=== PATIENT | female | born 1955 | race Caucasian/White ===

== ENCOUNTER 2024-08-11 17:23 | Emergency (ER) | payer MEDICARE, MEDICAID, SELFPAY ==
--- NOTE | ~2024-08-11 | XR_ITS ---
CLINICAL HISTORY: pain 3 view left ankle Comparison: None Findings: No acute fractures or dislocations. Mild arthritic change. A calcaneal spur is present. No ankle effusion. No radiopaque foreign body. IMPRESSION: 1. No acute findings. This document has been electronically signed by: Tangela Wiseman MD on 08/11/2024 18:28:45
[2024-08-11 17:41] VITALS: BP 139/86; PULSE 93; RESP 16; TEMP 36.7; O2SAT 98; BMI 25.9
--- NOTE | 2024-08-11 18:01 | ED.GENADULT ---
HPI - General Adult General Chief complaint: Extremity Injury, Lower Stated complaint: L leg pain Time Seen by Provider: 08/11/24 18:10 Source: patient Limitations: no limitations History of Present Illness ED Provider: Dee Johnson PA-C HPI narrative: 69-year-old female with a history of osteoporosis and osteoarthritis presents with chronic left ankle pain. No new activity, no trauma no swelling no redness, no fever. Patient has been seen multiple planes by primary care, she has been ruled out for DVT several times. Related Data Previous Rx's ?Medication ?Instructions ?Recorded methylprednisolone 4 mg tablets in 4 mg PO QAM #21 ea 08/11/24 a dose pack (Medrol (Nitesh)) Allergies Allergy/AdvReac Type Severity Reaction Status Date / Time morphine Allergy Intermediate Rash Verified 08/11/24 17:42 Review of Systems Review of Systems: Yes all other systems are reviewed and are negative Constitutional: Constitutional: Denies fatigue and Denies fever(s) Musculoskeletal: Musculoskeletal: Reports arthralgias and Denies joint swelling Integumentary/Breasts: Skin/Breast: Denies erythema Endocrine: Endocrine: Denies fatigue [facility] Past Medical History Attestation statement: The following information was validated with the patient. Social History Social History Advance Directives: No Advance Directives Information Provided: No Do you have a plan to hurt others: No Plan Physical Exam ED Vital Signs: Vital Signs - 24 hr 08/11/24 17:41 Temperature 98.1 F Pulse Rate 93 Respiratory Rate 16 Blood Pressure 139/86 Pulse Oximetry 98 Oxygen Delivery Method Room Air BMI result Body Mass Index 25.9 Const Other: Alert well-appearing Orientation/consciousness: patient oriented x3 Resp Effort & Inspection: normal respiratory effort Cardio Other: Normal peripheral perfusion Skin Other: Warm dry no rash Neuro Other: Antalgic gait General: patient oriented x3, no focal motor deficits and CN's II-XI intact bilaterally Extrem Other: Full flexion and extension of the ankle no swelling no erythema no warmth of the joint unremarkable exam pain most prominent over left lateral heel Psych Other: Cooperative Course Course Course Narrative: RME, this is a rapid medical exam performed by Chi Arnold please refer to primary provider for complete H&P- 69-year-old female presents for evaluation of left ankle pain that radiates up the left calf. She reports the pain has been present for 6 weeks now. She reports that she has had 2 previous ultrasounds of the left lower extremity that ruled out DVT. She has not had any x-rays. She has tried muscle relaxers without improvement. Plan for x-ray of the left ankle Medical Decision Making Medical Decision Making MDM Narrative: 69-year-old female with a history of osteoporosis and osteoarthritis presents with chronic left ankle pain. No new activity, no trauma no swelling no redness, no fever. Patient has been seen multiple planes by primary care, she has been ruled out for DVT several times. Problem: Age, osteoporosis and osteoarthritis History: Per patient I have considered the following differential diagnoses: Arthritis, fracture, dislocation, lytic lesion, septic joint Plan: X-ray ordered from triage it is unremarkable, she has a arthritis and a heel spur. We will send the patient with home care instructions including the use of Tylenol and adding on a Medrol Dosepak. I have suggested she follow up with an orthopedist for potential joint injections. I have independently reviewed the following tests: X-ray left ankle:Findings: No acute fractures or dislocations. Mild arthritic change. A calcaneal spur is present. No ankle effusion. No radiopaque foreign body. IMPRESSION: 1. No acute findings. Discharge Plan Discharge Clinical Impression: Osteoarthritis of ankle, left, Heel spur Patient Disposition: Home, Self-Care Instructions: Osteoarthritis (ED), Heel Spur (ED) Additional Instructions: The x-ray revealed that you have a heel spur and arthritis. The two condition are related. See home care instructions. You should be wearing a proper shoe that is supportive such as a sneaker. You can use [id number] Tylenol 1000 mg taken every 8 hours for pain. In addition I am sending you with a anti-inflammatory, take it as directed. Follow up with your primary care provider, they can refer you to an orthopedic service for potential joint injections if your symptoms do not improve. Prescriptions: New methylprednisolone [Medrol (Nitesh)] 4 mg tablets,dose pack 4 mg PO QAM Qty: 21 0RF Rx Instructions: Take per package instructions Print Language: Czech
--- OUTSIDE RECORDS SUMMARY | 2024-08-11 18:34 | XMS_ITS | Encounter Summary ---
Author Organization [facility] Address [address] [place] [address] Care Team Providers Care Plant Science Professor Name Role Phone Jadyn Nina Primary Care Provider [phone] Encounter Details Date Type Department Care Team (Late st Contact Info) Description 07/28/2024 Telephone Gastroenterology - [address] [facility] [address] [place] [phone] Danyelle Pimentel MD [address] [place] [address] Social History Tobacco Use Types Packs/Day Years Used Date Smoking Tobacco: Every Day Smokeless Tobacco: Never Comments Unknown Sex and Gender Information Value Date Recorded Sex Assigned at Female 07/31/2024 12:53 PM EDT Legal Sex Female 5:54 AM EST Gender Identity Female 07/31/2024 12:53 PM EDT Sexual Orientation Not on file documented as of this encounter Progress Notes * Alva Muñoz - 07/28/2024 2:03 PM EDT 1st attempt to schedule an appointment patient left message to call back. Pt needs to be seen in the office again, Last seen 03/2024 with morena. she mentions epigastric pain and gerd. Procedure is 5/6. EST 175 PROVIDERS * Bronwyn Michelle - 07/28/2024 11:21 AM EDT PT HAS A COLON ON 08/05 AND WONDERING IF SHE CAN GET A EGD AT THE SAME TIME documented in this encounter Plan of Treatment Upcoming Encounters Date Type Department Care Team (Late st Contact Info) Description 08/28/2024 10:15 AM EDT Appointment [facility] Xray [address] [place] [phone] 09/10/2024 3:30 PM EDT Appointment [facility] Endoscopy [address] [place] [phone] Danyelle Pimentel MD [address] [facility] [address] [place], [place] [phone] 09/18/2024 8:00 AM EDT Office Visit [facility] [address] [facility] [address] [place] [phone] Ligia Barnes MD 175 [facility] [address] [place] [phone] documented as of this encounter Visit Diagnoses Not on filedocumented in this encounter Care Teams Plant Science Professor Relationship Specialty Start Date End Date Jadyn Nina [address] [place] [address] PCP - General 04/15/24 documented as of this encounter
--- OUTSIDE RECORDS SUMMARY | 2024-08-11 18:34 | XMS_ITS | Clinical Summary ---
Author Organization [facility] Address [address] [place] [address] Care Team Providers Care Knife Blade Polisher Name Role Phone Molly Nina Primary Care Provider [phone] Allergies Active Allergy Reactions Criticality Noted Date Comments Lisinopril 02/01/2024 Morphine Rash 02/01/2024 Medications omeprazole (PriLOSEC) [address] capsule TAKE ONE CAPSULE BY MOUTH EVERY DAY IN THE MORNING BEFORE BREAKFAST NEEDED FOR SEVERE HEARTBURN Active aspirin 81 mg EC tablet Take 1 tablet (81 mg total) by mouth 1 (one) time each day. Active atorvastatin (LIPITOR) 40 mg tablet Take 1 tablet (40 mg total) by mouth. 4 Active albuterol HFA (PROVENTIL HFA;VENTOLIN HFA) 108 (90 Base) MCG/ACT inhaler Inhale into the lungs. Active cetirizine (ZyrTEC) 10 mg tablet Take by mouth. Activ e fluticasone furoate (ARNUITY ELLIPTA) 50 mcg/actuation blister with device inhaler Inhale into the lungs. Active pantoprazole (PROTONIX) 40 mg EC tablet Take 1 tablet (40 mg total) by mouth 1 (one) time each day. Take in am on empty stomach, wait 30 mins and then eat to activate the medication 30 each 4 Active clopidogreL (PLAVIX) 75 mg tablet Take 1 tablet (75 mg total) by mouth 1 (one) time each day. Active cholecalcifero l (VITAMIN D-3) 50 mcg (2,000 unit) tablet Take 1 tablet (2,000 Units total) by mouth 1 (one) time each day. Active alendronate (FOSAMAX) 70 mg tablet Take 1 tablet (70 mg total) by mouth every 7 (seven) days. Take in the morning with a full glass of water, on an empty stomach, and do not take anything else by mouth or lie down for the next 30 min. Active budesonide-for moteroL (SYMBICORT) 80-4.5 mcg/actuation inhaler Inhale 2 puffs by mouth 2 (two) times a day. Rinse mouth with water after use to reduce aftertaste and incidence of candidiasis. Do not swallow. Active fluticasone propionate (Flonase Allergy Relief) 50 mcg/actuation nasal spray Administer 1 spray into each nostril 2 (two) times a day. 3 Active cyanocobalamin (VITAMIN B-12) 1,000 mcg tablet Take 1 tablet (1,000 mcg total) by mouth daily. 3 Active acetaminophen (TYLENOL) 500 mg tablet Take 1 tablet (500 mg total) by mouth every 6 hours as needed. 4 Active escitalopram (LEXAPRO) 10 mg tablet Take 1 tablet (10 mg total) by mouth 1 (one) time each day. Active polyethylene glycol (Golytely) 236-22.74-6.74 -5.86 gram solution Take 4L by mouth once for one dose. May substitue any PEG. Starting at 6PM the night before your procedure drink 1 8oz glasses at your own pace until you complete half of the gallon. Finish 2nd half of the gallon 5 hours before your procedure. 4000 mL 5 Active bisacodyL (DULCOLAX) 5 mg EC tablet Take 2 tablets by mouth right before beginning bowel prep. See instructions provided by the office 2 tablet 5 Active gabapentin (NEURONTIN) 800 mg tablet Take 1 Tablet by mouth 3 times daily. 90 each 5 5 Active gabapentin (NEURONTIN) 800 mg tablet Take 1 Tablet by mouth 3 times daily. 025 Discontin ued(Reord er) Active Problems Problem Noted Date Diagnosed Date Acute deep vein thrombosis ( DVT) of proximal end of left lower extremity (CMS/HCC V24, CMS/HCC V28) 02/01/2024 Anxiety 02/01/2024 Bilateral leg numbness 02/01/2024 Chronic congestive heart failure ([facility] V24, [facility] [place] V28) 02/01/2024 Depression 02/01/2024 Gastroesophageal reflux disease 02/01/2024 History of ETOH abuse 02/01/2024 Ingrown toenail 02/01/2024 Internal hemorrhoids 02/01/2024 Lung nodules 02/01/2024 Nerve pain 02/01/2024 Neuropathy involving both lower extremities 04/2023 Osteoporosis 02/01/2024 Pleural effusion 02/01/2024 Pneumonia 02/01/2024 Pulmonary emboli ([facility] V24, [facility] V28) 04/2023 Stress bladder incontinence, female 02/01/2024 Encounters Date Type Department Care Team Description 07/28/2024 Telephone Gastroenterology - [address] [facility] [address] [place] [phone] Danyelle Pimentel MD 07/10/2024 Telephone Gastroenterology [facility] [address] [facility] [address] [place] [address] Kanika Naranjo LPN Anticoagulation (Colonoscopy on 08/05/[address] Pimentel) 06/13/2024 8:00 AM EDT Office Visit [facility] [address] [place] [phone] Laura Brumfield, DURAN Cerebrovascular accident (CVA) due to stenosis of posterior cerebral artery, unspecified blood vessel laterality ([facility] V24, [facility] V28) (Primary Dx) 06/09/2024 Telephone Gastroenterology [facility] [address] [facility] [address] [place] [address] Sariah Ortiz MD special procedure 06/05/2024 Telephone Gastroenterology [facility] [address] [facility] [address] [place] [address] Sariah Ortiz MD information needed from Last 3 Months Surgical History Surgery Date Site/Laterality Comments CHOLECYSTECTOMY N/A PROCEDURE: HISTORICAL CHOLECYSTECTOMY HYSTERECTOMY N/A PROCEDURE: HISTORICAL HYSTERECTOMY Medical History Medical History Date Comments Gastroesophageal reflux disease 10/16/2022 DX:Gastroesophageal reflux disease Pulmonary emboli (CMS/HCC V2 4, CMS/HCC V28) 10/16/2022 DX:Pulmonary emboli (HCC) History of total hysterectom y with bilateral salpingo-oophorectomy (BSO) 10/16/2022 DX:History of to beatriz hysterectomy with bilateral salpingo-oophorectomy (BSO) History of colonoscopy with polypectomy DX:History of colonoscopy with polypectomy Anxiety 10/16/2022 DX:Anxiety Depression 10/16/2022 DX:Depression History of ETOH abuse 10/16/2022 DX:History of ETOH abuse Stress bladder incontinence, female 10/16/2022 DX:Stress bladder incontinence, female Ingrown toenail 10/16/2022 DX:Ingrown toena il Chronic congestive heart marilyn lure (CMS/HCC V24, CMS/HCC V28) 10/16/2022 DX:Chronic congestive heart failure (HCC) Pneumonia 10/16/2022 DX:Pneumonia Pleural effusion 10/16/2022 DX:Pleural effu adele Acute deep vein thrombosis ( DVT) of proximal end of left lower extremity (CMS/HCC V24, CMS/HCC V28) 10/16/2022 DX:Acute deep vein thrombos is (DVT) of proximal end of left lower extremity (HCC) Nerve pain 10/16/2022 DX:Nerve pain Bilateral leg numbness 10/16/2022 DX:Bilate ral leg numbness Internal hemorrhoids 10/16/2022 DX:Internal hemorrhoids Neuropathy involving both lo wer extremities 10/16/2022 DX:Neuropathy involving both lower extremities Osteoporosis 10/16/2022 DX:Osteoporosis History of seizures 10/16/2022 DX:History o f seizures Lung nodules 10/16/2022 DX:Lung nodules History of gastric bypass 10/16/2022 DX:His tory of gastric bypass Social History Tobacco Use Types Packs/Day Years Used Date Smoking Tobacco: Every Day Smokeless Tobacco: Never Tobacco Cessation:Ready to Q uit: Not Asked; Counseling Given: Not Answered Comments Unknown Sex and Gender Information Value Date Recorded Sex Assigned at Female 07/31/2024 12:53 PM EDT Legal Sex Female 5:54 AM EST Gender Identity Female 07/31/2024 12:53 PM EDT Sexual Orientation Not on file Obstetrics History Last Filed Vital Signs Vital Sign Reading Time Taken Comments Blood Pressure 129/68 06/13/2024 8:19 AM EDT Pulse 67 06/13/2024 8:19 AM EDT Temperature 35.6 ??C (96 ??F) 06/13/2024 8:19 AM EDT Respiratory Rate - - Oxygen Saturation 99% 06/13/2024 8:19 AM EDT Inhaled Oxygen Concentration - - Weight 56.7 kg (125 lb) 06/13/2024 8:19 AM EDT Height 149.9 cm (4' 11 ) 06/13/2024 8:19 AM EDT Body Mass Index 25.25 06/13/2024 8:19 AM EDT Plan of Treatment Upcoming Encounters Date Type Department Care Team (Late st Contact Info) Description 08/28/2024 10:15 AM EDT Appointment [facility] Xray [address] [place] [phone] 09/10/2024 3:30 PM EDT Appointment [facility] Endoscopy [address] [place] [address] Danyelle Pimentel MD 299 [facility] [address] [place] [address] 09/18/2024 8:00 AM EDT Office Visit [facility] 175 [facility] [address] [place] [phone] Ligia Barnes MD 175 [facility] [address] [place] [phone] Health Maintenance Due Date Last Done Comments RSV Immunization Adult Patients (1 - Risk 60-74 years 1-dose series) 2014 Colorectal Cancer Screening: Colonoscopy 03/05/2022 Falls Risk Assessment 03/05/2022 Hepatitis C Screening 03/05/2022 Lung Cancer Screening (Low Dose CT) 03/05/2022 Medicare Annual Wellness Visit 03/05/2022 Social Influencers of Health Screening 03/05/2022 Breast Cancer Screening 12/01/2022 12/01/2020 Pneumococcal Vaccine: 50+ Years (2 of 2 - PCV) 08/04/2023 08/03/2022, 03/06/2016 COVID-19 Vaccine (3 - season) 2023 08/28/2020, 08/07/2020 Hypertension/CHF/CAD Annual BMP Blood Test 02/26/2025 02/27/2024, 08/03/2022 Depression Screening 03/24/2025 03/24/2024 Cholesterol Screening (Lipid Panel) 08/04/2027 08/03/2022, 08/03/2022, 05/27/2020, Additional history exists DTaP,Tdap,and Td Vaccines (2 - Td or Tdap) 05/07/2028 05/07/2018 Osteoporosis Screening (Bone Density Screening) 12/30/2033 12/31/2023, 12/31/2023, 12/01/2020 Zoster Vaccines Completed 08/03/2022, 05/27/2020 Influenza Vaccine Completed 12/13/2023 HIB Vaccines Aged Out No longer eligi ble based on patient's age to complete this topic HPV Vaccines Aged Out No longer eligi ble based on patient's age to complete this topic Hepatitis A Vaccines Aged Out No long er eligible based on patient's age to complete this topic Hepatitis B Vaccines Aged Out No long er eligible based on patient's age to complete this topic IPV Vaccines Aged Out No longer eligi ble based on patient's age to complete this topic MMR Vaccines Aged Out No longer eligi ble based on patient's age to complete this topic Meningococcal ACWY Vaccine Aged Out N o longer eligible based on patient's age to complete this topic Meningococcal B Vaccine Aged Out No l onger eligible based on patient's age to complete this topic RSV Immunization Patients Under 20 months Aged Out No longer eligible based on patient's age to complete this topic Varicella Vaccines Aged Out No longer eligible based on patient's age to complete this topic Procedures Procedure Name Priority Date/Time Associated Diagnosis Comments COMPREHENSIVE METABOLIC PANEL Routine 02/27/2024 11:51 AM EST Neuropathy [facility] DEXA AXIAL SKELETON Routine 12/31/2023 10:04 AM EDT Asymptomatic menopausal state [facility] SCREENING DIGITAL Routine 12/01/2020 5:49 PM EDT Encounter for screening mammogram for malignant neoplasm of breast from Last 3 Months or Most Recently Relevant to Health Maintenance Results * Comprehensive metabolic panel (02/27/2024 11:51 AM EST) Sodium 139 133 - 145 mmol/L LAB CHEMISTRY METHOD 02/27/2024 5:30 PM [facility] Potassium 4.3 3.5 - 5.5 mmol/L LAB CHEMISTRY METHOD 02/27/2024 5:30 PM [facility] Chloride 108 96 - 110 mmol/L LAB CHEMISTRY METHOD 02/27/2024 5:30 PM [facility] CO2 25 21 - 32 mmol/L LAB CHEMISTRY METHOD 02/27/2024 5:30 PM [facility] Anion Gap 6 3 - 11 LAB CHEMISTRY METHOD 02/27/2024 5:30 PM [facility] Glucose 86 70 - 100 mg/dL LAB CHEMISTRY METHOD 02/27/2024 5:30 PM [facility] BUN 9 5 - 25 mg/dL LAB CHEMISTRY METHOD 02/27/2024 5:30 PM [facility] Creatinine 0.80 0.50 - 1.10 mg/dL LAB CHEMISTRY METHOD 02/27/2024 5:30 PM [facility] eGFR 80 >=60 mL/min/1. 73m2 LAB CHEMISTRY METHOD 02/27/2024 5:30 PM [facility] Comment:Calculation based on the??Chronic Kidney Disease Epidemiology Collaboration (CKD-EPI) equation refit??without adjustment for race. BUN/Creatinine Ratio 11.3 LAB CHEMISTRY METHOD 02/27/2024 5:30 PM [facility] Calcium 9.7 8.5 - 10.5 mg/dL LAB CHEMISTRY METHOD 02/27/2024 5:30 PM [facility] AST (SGOT) 13 10 - 42 unit/L LAB CHEMISTRY METHOD 02/27/2024 5:30 PM [facility] ALT (SGPT) 13 10 - 60 unit/L LAB CHEMISTRY METHOD 02/27/2024 5:30 PM [facility] Alkaline Phosphatase 111 42 - 121 unit/L LAB CHEMISTRY METHOD 02/27/2024 5:30 PM [facility] Total Protein 6.6 6.0 - 8.0 g/dL LAB CHEMISTRY METHOD 02/27/2024 5:30 PM EST [facility] Albumin 3.9 3.2 - 5.0 g/dL LAB CHEMISTRY METHOD 02/27/2024 5:30 PM [facility] Total Bilirubin 0.5 0.0 - 1.4 mg/dL LAB CHEMISTRY METHOD 02/27/2024 5:30 PM [facility] Blood Venous blood specimen / Unknown Venipuncture / Unknown 02/27/2024 11:51 AM EST 02/27/2024 11:51 AM EST Ligia Barnes MD LAB BLOOD ORDERABLES Fin al Result [facility] [address] [place] [address], * [facility] DEXA AXIAL SKELETON (12/31/2023 10:04 AM EDT) Anatomical Region Laterality Modality Mammography 12/31/2023 9:17 AM EDT Narrative 12/31/2023 10:04 AM EDT [facility] Diagnostic Imaging Department [address] [place] [address] Patient: ??WILLIAM,YAQUELIN ?/Age/Sex: 1955 - 68 - F Unit#: ??[id number] ? Location/Status: ??SPDIMAM/REG CLI ? Mnemonic/Ordering Site: ??MAMDEXAAX/SPMAM Ordering Physician: ??MOLLY AVILEZ [employer] SALES REPRESENTATIVE [facility] Dexa Axial Skeleton - 12/31/23949 Report Status:Signed HISTORY: ??The patient is a 68-year-old postmenopausal female with clinical concern for metabolic bone disease. FINDINGS: ??Dual energy x-ray absorptiometry of the lumbar spine and femurs is performed. The mean bone mineral density at L1-L4 is 0.932 gm/cm2 which is 79% of that of young normals and 98% of that of age matched controls. This yields a T-score of -2.1 and a Z-score of -0.2 which is diagnostic of osteopenia. The mean bone mineral density of the femurs bilaterally is 0.575 gm/cm2 which is 57% of that of young normals and 71% of that of age matched controls. ??This yields a T-score of -3.4 and a Z-score of -1.8 which is diagnostic of osteoporosis. IMPRESSION: 1. Osteoporosis. ??There has been a decrease of 3.4% in bone mineral density in the lumbar spine since the prior examination of 12/01/2020. ??There has been a decrease of 19.7% in bone mineral density in the right femur and a decrease of 15.9% in bone mineral density in the left femur. 2. FRAX analysis yields a 10-year probability of major osteoporotic fracture of 30.0% and a 10-year probability of hip fracture of 13.6%. Code 17999 Dictating Physician: ??BETINA BRUNO MD Electronically Signed by: ??BETINA BRUNO MD Dic Date/Time: ??12/31/23 1000 Sign date/Time: ??12/31/23 1004 Procedure Note Betina Bruno MD - 01/16/2024 [facility] Diagnostic Imaging Department [address] [place] [address] Patient: YAQUELIN CARREON/Age/Sex: 1955 - 68 - F Unit#: [id number] Location/Status: [facility] [facility] Mnemonic/Ordering Site: [facility] Ordering Physician: MOLLY AVILEZ NP [facility] Dexa Axial Skeleton - 12/31/23 - 0950 Report Status:Signed HISTORY: The patient is a 68-year-old postmenopausal female withclinical concern for metabolic bone disease. FINDINGS: Dual energy x-ray absorptiometry of the lumbar spine and femursis performed. The mean bone mineral density at L1-L4 is 0.932 gm/cm2 which is79% of that of young normals and 98% of that of age matched controls. Thisyields a T-score of -2.1 and a Z-score of -0.2 which is diagnostic of osteopenia. The mean bone mineral density of the femurs bilaterally is 0.575 gm/et8ptlyy is 57% of that of young normals and 71% of that of age matched controls.This yields a T-score of -3.4 and a Z-score of -1.8 which is diagnostic of osteoporosis. IMPRESSION: 1. Osteoporosis. There has been a decrease of 3.4% in bone mineraldensity in the lumbar spine since the prior examination of 12/01/2020. There has dillon decrease of 19.7% in bone mineral density in the right femur and adecrease of 15.9% in bone mineral density in the left femur. 2. FRAX analysis yields a 10-year probability of major osteoporoticfracture of 30.0% and a 10-year probability of hip fracture of 13.6%. Code 47164 Dictating Physician: BETINA BRUNO MD Electronically Signed by: BETINA BRUNO MD Dic Date/Time: 12/31/23 1000 Sign date/Time: 12/31/23 1004 us Molly Nina IM BI PROCEDURES Final Result * [facility] SCREENING DIGITAL (12/01/2020 5:49 PM EDT) Anatomical Region Laterality Modality Mammography 12/01/2020 1:17 PM EDT Narrative 12/01/2020 5:49 PM EDT [facility] Diagnostic Imaging Department [address] [place] [address] Patient: ??YAQUELIN CARREON ?/Age/Sex: 1955 - 65 - F Unit#: ??[id number] ? Location/Status: ??SPDIMAM/REG CLI ? Mnemonic/Ordering Site: ??DIGSC/SPMAM Ordering Physician: ??GOGO ROBLERO PA-C [facility] Screening Digital - 12/01/201338 History: Bilateral breast cancer screening. Technique: Bilateral digital mammography. Conventional CC and MLO projections with tomosynthesis MLO views and computer-aided detection Comparison: [facility] 08/05/2012 dating back to 05/15/2003. Findings: Breast tissue is mostly ??fatty replaced (category A density) (as calculated by [employer] software). There is no suspicious group of microcalcification, no suspicious mass, architectural distortion or suspicious change in breast tissue density. Impression: ??No evidence of malignancy. BIRADS category 1, negative examination, 3341F [id number], [id number] Note: Patient information entered ??into a reminder system with a target due date for the next mammogram; PQRI II [id number] Dictating Physician: ??ERIC PRADHAN MD Electronically Signed by: ??ERIC PRADHAN MD Dic Date/Time: ??12/01/201747 Sign date/Time: ??12/01/201748 Procedure Note Eric Pradhan MD - 03/29/2022 [facility] Diagnostic Imaging Department [address] [place] [phone] Patient: YAQUELIN CARREON/Age/Sex: 1955 - 65 - F Unit#: [id number] Location/Status: [facility] Mnemonic/Ordering Site: [facility] Ordering Physician: GOGO ROBLERO PA-C [facility] Screening Digital - 12/01/20 - 1339 History: Bilateral breast cancer screening. Technique: Bilateral digital mammography. Conventional CC and MLOprojections with tomosynthesis MLO views and computer-aided detection Comparison: [facility] 08/05/2012 dating back to 05/15/2003. Findings: Breast tissue is mostly fatty replaced (category A density) (ascalculated by [employer] software). There is no suspicious group of microcalcification, no suspicious mass, architectural distortion or suspicious change in breast tissue density. Impression: No evidence of malignancy. BIRADS category 1, negative examination, 3341F [id number], [id number] Note: Patient information entered into a reminder system with a targetdue date for the next mammogram; PQRI II [id number] Dictating Physician: ERIC PRADHAN MD Electronically Signed by: ERIC PRADHAN MD Dic Date/Time: 12/01/201747 Sign date/Time: 12/01/201748 G[facility] IMG BI PROCEDURES Final Result from Last 3 Months or Most Recently Relevant to Health Maintenance Insurance [place] Care Teams Knife Blade Polisher Relationship Specialty Start Date End Date Molly Nina [address] [place] [address] PCP - General 04/15/24
--- OUTSIDE RECORDS SUMMARY | 2024-08-11 18:34 | XMS_ITS | Clinical Summary ---
Author Organization [facility] Address [address] [place] [address] Care Team Providers Care Junior Oracle Dba Name Role Phone Jadyn Nina NP Primary Care Provider Source Comments PLEASE NOTE, if this patient is a minor, it may be UNLAWFUL to discuss sensitive information that is contained in these records (such as FAMILY PLANNING, MENTAL HEALTH or SUBSTANCE ABUSE) with the minor patient's parent or other person without the patient's specific authorization.[facility] Allergies Active Allergy Reactions Criticality Noted Date Comments Lisinopril 09/13/2015 Morphine Rash 09/13/2015 Medications gabapentin (NEURONTIN) 800 mg tabletIndicatio ns:Neuropathy involving both lower extremities PRESCRIBED BY NEUROLOGY 900MG BID AND 1000 QHS 90 Tablet 5 05/27/19 21 Active albuterol HFA 90 mcg/actuation inhalerIndicati ons:Seasonal allergic rhinitis, unspecified trigger INHALE TWO PUFFS INTO THE LUNGS EVERY 6 HOURS NEEDED FOR SHORTNESS OF BREATH Strength: 90 mcg 18 g 2 04/12/19 23 Active fluticasone (FLONASE) 50 mcg/actuation nasal sprayIndication s:allergic rhinitis Place 1 Amity in both nostrils 2 (two) times daily Indications: inflammation of the nose due to an allergy 16 g 5 07/13/19 23 Active MISCELLANEOUS MEDICAL SUPPLY MISCIndications :Chronic congestive heart failure, unspecified heart failure type (HCC-CMS),Neuro clemencia involving both lower extremities,Fra il elderly,At risk for falling Dispense Rollator walker with brakes and bench. Lifetime use. Dx:Chronic congestive heart failure, unspecified heart failure type (HCC-CMS) [I50.9], Neuropathy involving both lower extremities [G57.93],Frail elderly [R54], At risk for falling [Z91.81] 1 Each 08/04/19 23 Active cyanocobalamin (VITAMIN B-12) 1,000 mcg tabletIndicatio ns:prevention of vitamin B12 deficiency Take 1 Tablet by mouth once daily Indications: prevention of vitamin B12 deficiency 90 Tablet 3 08/04/19 23 Active escitalopram (LEXAPRO) 10 mg tablet Take 1 Tablet by mouth once daily 90 Tablet 1 08/04/19 23 Active DULoxetine (CYMBALTA) [address] capsuleIndicati ons:Neuropathy involving both lower extremities,Anx iety and depression Take 1 Capsule by mouth once daily for 90 days 30 Capsule 2 05/28/19 24 Active acetaminophen (TYLENOL) 500 mg tabletIndicatio ns:Post-op pain Take 1 Tablet by mouth every 6 (six) hours as needed for pain 20 Tablet 06/26/19 24 Active atorvastatin (LIPITOR) 40 mg tabletIndicatio ns:Hospital discharge follow-up Take 1 Tablet by mouth nightly at bedtime 90 Tablet 10/12/19 24 Active omeprazole (PRILOSEC) [address] capsuleIndicati ons:Chronic GERD Take 1 Capsule by mouth once daily as needed for other reason (gerd) 30 Capsule 10/24/19 24 Active budesonide-form oteroL (SYMBICORT) 80-4.5 mcg/actuation inhalerIndicati ons:Mild intermittent asthma, unspecified whether complicated ([facility]) Inhale 2 Puffs into the lungs 2 (two) times daily 10.2 g 1 12/13/19 24 Active cetirizine (ZYRTEC) 10 mg tabletIndicatio ns:Seasonal allergic rhinitis, unspecified trigger Take 1 Tablet by mouth every morning 90 Tablet 2 12/13/19 24 Active cholecalciferol (VITAMIN D-3) 50 mcg (2,000 unit) capsuleIndicati ons:osteoporosi s Take 1 Capsule by mouth once daily Indications: osteoporosis, a condition of weak bones 90 Capsule 3 01/07/20 [address] tabletIndicatio ns:Ischemic stroke ([facility]) TAKE ONE TABLET BY MOUTH EVERY DAY 90 Tablet 1 04/25/19 25 Active cyclobenzaprine (FLEXERIL) 5 mg tabletIndicatio ns:Leg cramp Take 1 Tablet by mouth 3 (three) times daily as needed for muscle spasms 30 Tablet 07/17/19 25 Active alendronate (FOSAMAX) 70 mg tabletIndicatio ns:Osteoporosis of multiple sites TAKE 1 TABLET BY MOUTH ONCE A WEEK ON EMPTY STOMACH WITH A FULL GLASS OF WATER. REMAIN UPRIGHT FOR AT LEAST 30 MINUTES 12 Tablet 1 07/19/19 25 Active clopidogreL (PLAVIX) 75 mg tabletIndicatio ns:Ischemic stroke (HCC-CMS) TAKE ONE TABLET BY MOUTH EVERY DAY 90 Tablet 07/26/19 25 Active alendronate (FOSAMAX) 70 mg tabletIndicatio ns:postmenopaus al osteoporosis TAKE 1 TABLET BY MOUTH ONCE A WEEK ON AN EMPTY STOMACH WITH A FULL GLASS OF WATER. REMAIN UPRIGHT FOR AT LEAST 30 MINUTES. Indications: decreased bone mass following menopause 12 Tablet 1 12/13/19 24 2024 Discontinued clopidogreL (PLAVIX) 75 mg tabletIndicatio ns:Ischemic stroke (HCC-CMS) TAKE ONE TABLET BY MOUTH EVERY DAY 90 Tablet 04/25/19 25 2024 Discontinued Active Problems Problem Noted Date Diagnosed Date Declined smoking cessation 10/12/2023 Ischemic stroke (HCC-CMS) 10/12/2023 Overview (10/12/2023): 10/12/23: Yaquelin Carreon is a 68 year old female patient who presents to the office today for hospital f/u. Pt suffered a stroke went to [facility] where MRI was preformed. Still c.o blurry vision of the right side that is bothering her. MRI IMPRESSION: on 09/09/23 Acute or subacute infarct involving the left parietal and occipital lobes ([employer] territory). Per ED note 68 year-old female with past medical history significant for neuropathy, previous right lower extremity DVT and PE, COPD, and further history below presents with 3 day history of right sided numbness and tingling. Pt states that the symptoms came on randomly with no preceding event. Pt reports the numbness/tingling sensation on her face, arm and legs. She also reports right sided peripheral vision loss and feeling off balance. The next day she began to experience a migraine on the left side of her head, which she is still experiencing now. Pt took Advil at home with no pain relief. Pt states her daughter told her she wasn't right and that she was slurring her words earlier today. Pt denies chest pain, fever, chills, N/V/D. Upon H&P, pt is afebrile, HR 63, RR 19, BP 114/53, spO2 97% RA. CBC unremarkable, glucose 51. UA reveals large leukocyte esterase, 44 WBC, but 71 epithelial cells suggesting possible contamination. CTA brain reveals severe short-segment string like stenosis/occlusion measuring 2 mm in length of the proximal left P2 segment [employer], with distal reconstitution. Ill-defined patchy hypoattenuation in the left parietal, temporal and occipital lobes. Age-indeterminate ischemia not excluded. CTA neck reveals stenoses in the bilateral carotid bulbs, severe on the left and moderate on the right. Please see full reports below. CXR pending. In ED, pt received 325 mg Aspirin, 80 mg Atorvastatin, and 1 g Ceftriaxone. Pt was then admitted to the medicine team. CT Brain Angiography - 09/09/23 - 1856 Report Status:Signed ADDENDUM ADDENDUM: This report was discussed with IFEANYI REAVES on Sep 09, 2023 19:55:00 EDT. This document has been electronically signed by: Low Renteria on 09/09/2023 19:56:10 Addendum Dictated By: KARL MEIER MD Addendum Esigned by: KARL MEIER MD Dictated: 09/09/2312/24/1952 Signed:09/09/231952 ORIGINAL REPORT EXAM: CT Head without Intravenous contrast CT Angiography Head Without and With Intravenous Contrast MIPS post processing and 3D reconstruction was performed. COMPARISON: No relevant prior studies available. FINDINGS: VASCULATURE: RIGHT INTERNAL CAROTID ARTERY: No acute findings. Intracranial segment is patent with no significant stenosis. No aneurysm. RIGHT ANTERIOR CEREBRAL ARTERY: Unremarkable. No occlusion or significant stenosis. No aneurysm. RIGHT MIDDLE CEREBRAL ARTERY: Unremarkable. No occlusion or significant stenosis. No aneurysm. RIGHT POSTERIOR CEREBRAL ARTERY: Unremarkable. No occlusion or significant stenosis. No aneurysm. RIGHT VERTEBRAL ARTERY: Unremarkable as visualized. LEFT INTERNAL CAROTID ARTERY: No acute findings. Intracranial segment is patent with no significant stenosis. No aneurysm. LEFT ANTERIOR CEREBRAL ARTERY: Unremarkable. No occlusion or significant stenosis. No aneurysm. LEFT MIDDLE CEREBRAL ARTERY: Unremarkable. No occlusion or significant stenosis. No aneurysm. LEFT POSTERIOR CEREBRAL ARTERY: Severe short-segment string like stenosis/occlusion measuring 2 mm in length of the proximal left P2 segment [employer], with distal reconstitution. No aneurysm. LEFT VERTEBRAL ARTERY: Unremarkable as visualized. BASILAR ARTERY: Unremarkable. No occlusion or significant stenosis. No aneurysm. OTHER VASCULATURE: Diminutive caliber of the right transverse and sigmoid dural venous sinuses. HEAD: BRAIN AND EXTRA-AXIAL SPACES: Ill-defined patchy hypoattenuation in the left parietal, temporal and occipital lobes. Scattered subcortical and periventricular hypoattenuation, likely in keeping with chronic small vessel ischemic disease. Parenchymal volume loss with compensatory prominence of the ventricles and CSF spaces. No acute intracranial hemorrhage, midline shift or hydrocephalus. BONES/JOINTS: No acute fracture. SOFT TISSUES: Unremarkable. SINUSES: See above. MASTOID AIR CELLS: Unremarkable as visualized. No mastoid effusion. IMPRESSION: 1. Severe short-segment string like stenosis/occlusion measuring 2 mm in length of the proximal left P2 segment [employer], with distal reconstitution. 2. Ill-defined patchy hypoattenuation in the left parietal, temporal and occipital lobes. Age-indeterminate ischemia not excluded. Recommend follow-up MRI. This document has been electronically signed by: Karl Meier MD on 09/09/2023 19:53:54 Dictating Physician: KARL MEIER MD Electronically Signed by: KARL MEIER MD Dic Date/Time: EXAM: CT Angiography Neck With Intravenous Contrast MIPS post processing and 3D reconstruction was performed. COMPARISON: None. FINDINGS: VASCULATURE: RIGHT COMMON CAROTID ARTERY: Unremarkable. No occlusion or significant stenosis. No dissection. RIGHT INTERNAL CAROTID ARTERY: Calcified and noncalcified atheromatous plaque in the right carotid bulb, results in 50% stenosis. No dissection. RIGHT EXTERNAL CAROTID ARTERY: Unremarkable. No occlusion. RIGHT VERTEBRAL ARTERY: Unremarkable. No occlusion or significant stenosis. No dissection. LEFT COMMON CAROTID ARTERY: Unremarkable. No occlusion or significant stenosis. No dissection. LEFT INTERNAL CAROTID ARTERY: Heterogeneous calcified and noncalcified atheromatous plaque in the left carotid bulb results in severe greater than 70% stenosis. No dissection. LEFT EXTERNAL CAROTID ARTERY: Unremarkable. No occlusion. LEFT VERTEBRAL ARTERY: Unremarkable. No occlusion or significant stenosis. No dissection. NECK: BONES/JOINTS: Multilevel spondylosis with osteophytosis, uncovertebral hypertrophy, facet arthropathy and degenerative disc disease. No acute fracture. SOFT TISSUES: Unremarkable. LUNG APICES: Paraseptal emphysema. Right-sided atelectasis. IMPRESSION: Stenoses in the bilateral carotid bulbs, severe on the left and moderate on the right. This document has been electronically signed by: Karl Meier MD on 09/09/2023 19:34:06 Dictating Physician: KARL MEIER MD Electronically Signed by: KARL MEIER MD Dic Date/Time: 09/09/231933 Sign date/Time: 09/09/23 [id number] (DARSHANA RUFFIN PA-C) Plan Assessment Additional Comments NIH Stroke Scale/Score (NIHSS) from [employer] on 09/09/2023 All calculations should be rechecked by clinician prior to use RESULT SUMMARY: 2 points NIH Stroke Scale Plan Assessment and plan Stroke rule out NIH Stroke Scale: 2, ABCD2 score: 5 Pt reports symptoms of right sided numbness/tingling, right sided hemianopsia, left sided headache. CTA brain reveals severe short-segment string like stenosis/occlusion measuring 2 mm in length of the proximal left P2 segment [employer], with distal reconstitution. Ill-defined patchy hypoattenuation in the left parietal, temporal and occipital lobes. Age- indeterminate ischemia not excluded. CTA neck reveals stenoses in the bilateral carotid bulbs, severe on the left and moderate on the right. Please see full reports above. Per ED providers note: Dr. Rodriguez of of teleneurology. States is not this patient is not a candidate for tPA due to being outside the window. But he recommend admission for MRI of the brain and cardiac echo and optimization of stroke risk factors . - Admit to medicine for observation - Monitor on telemetry - Continue Aspirin, Plavix, and Atorvastatin - PT/OT eval in am - q4h neuro check - Dysphagia assessment - Fall and aspiration precautions - Follow up MRI brain and echo in am - Follow up pending lipid profile, Hb1Ac - Morning labs; CBC, BMP, Mg Neuropathy - Continue home med; Gabapentin Abscess of lung without pneumonia ([facility]) 08/31 Overview (09/12/2022): 08/30/22: LDCT suspect pulmonary abscess airway leading to lesion. Bronchoscopy plus BAL and brush for micro and cutology- then start abx x 1 month. Repeat imaging after completing abx. Dr. Yusuf is arranging for BAL and bronch next week and pulm consult. Dyslipidemia 08/04/2022 Overview (08/04/2022): 08/04/22: Pt agreed to take Lipitor. For cvd risk . Unable to take asa due to hx of gastric bypass The 10-year ASCVD risk score (Elaine VELÁZQUEZ, et al., 2019) is: 11% Lung nodules 08/03/2022 Overview (08/03/2022): 2021: 2 mm lung nodules. unchanaged History of colon polyps 08/03/2022 08/04/19 Peptic ulcer 08/03/2022 08/03/2022 Peripheral nerve disease 08/03/2022 023 History of seizures 03/14/2022 Overview (03/14/2022): 01/20/22: Not on medication, seen at [facility] neurology. As per last note from , given normal MRI and ambulatory EEG- will not start medication for seizures at this time. Recommend diary of seizures . C/w gabapentin 900/900/1000 mg for peripheral neuropathy. F/U in 6-12 months Osteoporosis of multiple sites 12/22/2020 Overview (12/22/2020): [facility] Dexa Axial Skeleton Date: 12/01/2020 IMPRESSION: 1. Osteoporosis. There has been a decrease of 16.8% in bone mineral density in the lumbar spine since the prior examination of 08/05/2012. There has been a decrease of 16.6% in bone mineral density in the right femur and a decrease of 20.6% in bone mineral density in the left femur. 2. FRAX analysis yields a 10-year probability of major osteoporotic fracture of 29.3% and a 10-year probability of hip fracture of 12.5% Major depressive disorder, r ecurrent episode, moderate with anxious distress ([facility]) 06/24/2020 Tobacco dependence due to cigarettes 05/27/2020 Neuropathy involving both lower extremities 05/04 Internal hemorrhoids 06/03/2019 Overview (06/03/2019): [facility] 04/26/2016 Internal and external hemorroids Bilateral leg numbness 04/25/2018 Overview (06/03/2018): Saw neurology on 05-28-18 - increase gabapentin to 900 mg TID. NO INCREASE FURTHER D/T age. Trial alpha lipoic acid, 300mg BID. If continue, may switch to lyrica. Referral to pain mangement. RTC in 3 months. Had EMG done on 04-23-18 - normal study. History of Denise-en-Y gastric bypass 03/08/2016 Nerve pain 02/16/2016 Major depression, recurrent, chronic (PACE-HCC V 24) 12/23/2015 Systolic congestive heart failure 10/31/2015 Overview (09/15/2017): 2015 negative DVT. CTA- bilateral subsegmental PEs. Plan: 6 months Coumadin since 2015. 10/2015 - Dr. Karely Espinosa: starts on Lasix 20 mg po daily, plan: Echo, rescan DVT- LLE, PE- CT scan angio chest with contrast 11/15/15 ECHO (normal EF 55- 60%) 08/24/17 - [facility]: TT ECHO: LV systolic Fxn normal 60-65%, left atrium and R ventricle normal, trace mitral and tricuspidc regurgitation. No sig change from Prior report on 11/15/15. Deep vein thrombosis (DVT) o f proximal vein of left lower extremity (HCC-CMS) 10/15/2015 Gastroesophageal reflux disease 09/13/2015 Overview (08/03/2022): [facility] 04/2016 EGD: ulcers in the stomach body, hiatal hernia Pulmonary emboli (HCC-CMS) 09/13/2015 Overview (03/29/2016): - completed Coumadin 2015 History of total hysterectom y with bilateral salpingo-oophorectomy (BSO) 09/13/2015 Overview (09/13/2015): At age 41 History of colonoscopy with polypectomy 09/13/19 16 Overview (05/16/2016): [facility] 04/2016. Anxiety and depression 09/13/2015 History of ETOH abuse 09/13/2015 Stress bladder incontinence, female 09/13/2015 Overview [facility]09/13/2015[facility] Ingrown toenail 09/13/2015 Chronic congestive heart failure ([facility]) 09/12 Overview (10/09/2017): 09-13-17 [place] [facility] - continue metoprolol, echo ordered. Echo done showed preserved LVEF and lower extremity u/s showed no DVT. Pneumonia 09/13/2015 Overview (09/13/2015): In 2015 Pleural effusion 09/13/2015 Overview (09/13/2015): In 05/2015 Resolved Problems Problem Noted Date Diagnosed Date Resolved Date History of gastric bypass 08/03/2022 08/03/2022 Hypertension 03/29/2016 08/03/2022 History of cholecystectomy 09/13/2015 0 08/03/2022 Overview (09/13/2015): At age 34 Encounters Date Type Department Care Team Description 07/16/2024 2:40 PM EDT Telemedicine Visit [address] [phone] Jadyn Nina NP Leg cramp (Primary Dx) from Last 3 Months Immunizations Immunization Administration Dates Next Due Influenza (FLUZONE), high-dose, trivalent, PF PNEUMOCOCCAL POLYSACCHARIDE PPV23 (Pneumovax 23) 08/03/2022,03/06/2016 TDAP 05/07/2018 ZOSTER VACCINE, RECOMBINANT (SHINGRIX) 3,05/27/2020 Social History Tobacco Use Types Packs/Day Years Used Date Smoking Tobacco: Every Day Cigarettes 0.5 40 Smokeless Tobacco: Current Tobacco Cessation:Ready to Q uit: Not Asked; Counseling Given: Not Answered Alcohol Use Standard Drinks/Week Comments No 0 (1 standard drink = 0.6 oz pur e alcohol) Social Connections Answer Date Recorded Connectedness 1 03/24/2024 Financial Resource Strain Answer Date R ecorded Financial Resource Strain 1 2023 Stress Answer Date Recorded Stress 1 03/24/2024 Physical Activity Answer Date Recorded Physical Activity 0 11/18/2018 Food Insecurity Answer Date Recorded Food 1 03/24/2024 Transportation Needs Answer Date Record ed Transportation 1 03/24/2024 Housing Stability Answer Date Recorded Housing 1 03/24/2024 Safety and Environment Answer Date Yossi rded Safety 0 08/03/2022 Utilities Answer Date Recorded Utilities 1 03/24/2024 Employment Answer Date Recorded Stress 0 08/03/2022 Comments No Sex and Gender Information Value Date Recorded Sex Assigned at Female 09/20/2017 5:47 AM PDT Legal Sex Female 11:01 AM PDT Gender Identity Female 09/20/2017 5:47 AM PDT Sexual Orientation Straight 09/20/2017 5: 47 AM PDT Last Filed Vital Signs Vital Sign Reading Time Taken Comments Blood Pressure 135/81 03/24/2024 1:05 PM EST Pulse 75 03/24/2024 1:05 PM EST Temperature 36.4 ??C (97.6 ??F) 03/24/2024 1:05 PM ES T Respiratory Rate 18 03/24/2024 1:05 PM EST Oxygen Saturation 96% 03/24/2024 1:05 PM EST Inhaled Oxygen Concentration - - Weight 59 kg (130 lb) 03/24/2024 1:05 PM EST Height 152.4 cm (5') 03/24/2024 1:05 PM EST Body Mass Index 25.39 03/24/2024 1:05 PM EST Plan of Treatment Upcoming Encounters Date Type Department Care Team (Late st Contact Info) Description 08/15/2024 1:00 PM EDT Office Visit [facility] [address] [place] [phone] Jadyn Nina NP [address] [place] [address] Health Maintenance Due Date Last Done Comments CT Colonography 1999 Fecal DNA 1999 Flexible Sigmoidoscopy 1999 FIT/gFOBT 04/26/2017 04/26/2016 Colonoscopy 04/26/2021 04/26/2016 Colorectal Cancer Screening 04/26/2021 Breast Cancer Screening (Mammogram) 12/01/2021 12/01/2020 Imm-Pneumococcal 65+ (2 of 2 - PCV) 08/04/2023 08/03/2022, 03/06/2016 Lipid Screening 08/04/2023 08/03/2022, 05/04, 09/19/2017, Additional history exists Medicare Annual Wellness Visit 08/04/2023 08/03/2022 , 05/07/2018 [id number] ( season) 2023 021, 08/07/2020 Alcohol and Drug Screen 04/02/2024 03/24/20 24, 05/28/2023, 08/03/2022, Additional history exists Depression Monitoring 06/22/2024 03/24/2024 , 10/12/2023, 05/28/2023, Additional history exists Lung Cancer Screening 09/08/2024 09/09/2023, 023 Falls Prevention 10/11/2024 10/12/2023, 07/2022, 05/27/2020 Tobacco Cessation Counseling (#1) 10/11/2024 10/12/2023, 08/03/2022, 05/20/2021, Additional history exists Hypertension Screening (#1) 03/24/2025 Diabetes Screening 02/26/2027 02/27/2024, 0 08/03/2022, 08/03/2022, Additional history exists Imm-DTaP/Tdap/Td (2 - Td or Tdap) 05/07/2028 019 Hepatitis C Screening Completed 09/19/2017 Imm-Zoster, Recombinant Completed 08/03/2022, 05/27 Imm-Influenza Discontinued 12/13/2023, 03/06/2016 Bone Density Screening Completed , 12/31/2023, 12/01/2020, Additional history exists Procedures Procedure Name Priority Date/Time Associated Diagnosis Comments DUP-SCAN XTR VEINS UNILATERAL/LIMITED STUDY STAT 06/28/2024 3:00 AM EDT Pain of left calf REFERRAL SCANNED DOCUMENT 06/13/2024 3:00 AM EDT DXA BONE DENSITY STUDY 1/> SITES AXIAL SKEL Routine 12/31/2023 3:00 AM EDT Menopause LOW DOSE CT LUNG SCREENING Routine 08/30/2022 3:00 AM EDT Screening for lung cancer Lung nodule COMPREHENSIVE METABOLIC PANEL Routine 08/03/2022 3:37 PM EDT Routine general medical examination at a health care facility LIPID PANEL Routine 08/03/2022 3:37 PM EDT Routine general medical examination at a health care facility REFERRAL FOR MAMMOGRAM Routine 12:00 AM EDT Encounter for screening mammogram for malignant neoplasm of breast HEPATITIS A,B,C PANEL Routine 09/19/2017 2:40 PM EDT Hepatomegaly COLONOSCOPY Routine 04/26/2016 from Last 3 Months or Most Recently Relevant to Health Maintenance Results * DUP-SCAN XTR VEINS UNILATERAL/LIMITED STUDY (06/28/2024 3:00 AM EDT) 06/28/2024 3:00 AM EDT us Jadyn Nina NP IMG ULTRASOUND Final Result [facility] Corporate Office [address], [address] [place] [address], [place] [phone] * REFERRAL SCANNED DOCUMENT (06/13/2024 3:00 AM EDT) 06/13/2024 3:00 AM EDT us Jadynricardo Nina WARE CARRIER SCAN REFERRAL Final Result * DXA BONE DENSITY STUDY 1/> SITES AXIAL SKEL (12/31/2023 3:00 AM EDT) 12/31/2023 3:00 AM EDT us Jadyn Nina NP IMG DXA Edited Resul t - Final * LOW DOSE CT LUNG SCREENING (08/30/2022 3:00 AM EDT) 08/30/2022 3:00 AM EDT us Jadyn Nina WARE CARRIER IMG CT Edited Resul t - Final * (ABNORMAL) LIPID PANEL (08/03/2022 3:37 PM EDT) [facility] CHOLESTEROL, TOTAL 256(H) <200 mg/dL [employer] [facility] HDL CHOLESTEROL 56 > OR = 50 mg/dL [employer] [facility] TRIGLYCERIDES 125 <150 mg/dL [employer] [facility] LDL-CHOLESTEROL 174(H) 99 mg/dL (calc) [employer] [facility] Comment: Reference range: <100 Desirable range <100 mg/dL for primary prevention; ?? <70 mg/dL for patients with CHD or diabetic patients with > or = 2 CHD risk factors. LDL-C is now calculated using the Curtis-Coreas calculation, which is a validated novel method providing better accuracy than the Friedewald equation in the estimation of LDL-C. Curtis SS et al. JUAN MIGUEL. 2013;310(19): 0698-6411 (http://education.3seventy/faq/LKM936) CHOL/HDLC RATIO 4.6 <5.0 (calc) [employer] [facility] NON-HDL CHOLESTEROL 200(H) <130 mg/dL (calc) [employer] [facility] Comment: For patients with diabetes plus 1 major ASCVD risk factor, treating to a non-HDL-C goal of <100 mg/dL (LDL-C of <70 mg/dL) is considered a therapeutic option. Blood Blood / Unknown 08/03/2022 3 :37 PM EDT 08/03/2022 3:38 PM EDT us Jadyn Nina NP LAB - BLOOD DRAW Final Resul t [employer] [facility] [address] [address] [employer] [address] [place] [address] * COMPREHENSIVE METABOLIC PANEL (08/03/2022 3:37 PM EDT) GLUCOSE 96 65 - 99 mg/dL [employer] [facility] Comment: ?Fasting reference interval UREA NITROGEN (BUN) 16 7 - 25 mg/dL [employer] [facility] CREATININE (blood) 0.66 0.50 - 1.05 mg/dL [employer] [facility] EGFR 95 > OR = 60 mL/min/1 .73m2 [employer] [facility] Comment: The eGFR is based on the CKD-EPI 2020 equation. To calculate the new eGFR from a previous Creatinine or Cystatin C result, go to https://www.kidney.org/professionals/ kdoqi/[email or web address] BUN/CREATININE RATIO NOT APPLICABLE [employer] [facility] SODIUM 142 135 - 146 mmol/L [employer] [facility] POTASSIUM 4.3 3.5 - 5.3 mmol/L [employer] [facility] CHLORIDE 110 98 - 110 mmol/L [employer] [facility] CARBON DIOXIDE 24 20 - 32 mmol/L [employer] [facility] CALCIUM 9.3 8.6 - 10.4 mg/dL [employer] [facility] PROTEIN, TOTAL 6.9 6.1 - 8.1 g/dL [employer] [facility] ALBUMIN 4.4 3.6 - 5.1 g/dL [employer] [facility] GLOBULIN 2.5 1.9 - 3.7 g/dL (calc) [employer] [facility] ALBUMIN/GLOBUL IN RATIO 1.8 1.0 - 2.5 (calc) [employer] [facility] BILIRUBIN, TOTAL 0.5 0.2 - 1.2 mg/dL [employer] [facility] ALKALINE PHOSPHATASE 108 37 - 153 U/L [employer] [facility] AST 12 10 - 35 U/L [employer] [facility] ALT 8 6 - 29 U/L [employer] [facility] Blood Blood / Unknown 08/03/2022 3 :37 PM EDT 08/03/2022 3:38 PM EDT Jadyn Nina NP LAB - BLOOD DRAW Edited Resu lt - Final [employer] [facility] [address] [address], [employer] [facility] [address] [place] [address] * REFERRAL FOR MAMMOGRAM (12/01/2020 12:00 AM EDT) 12/01/2020 Eryn Lowry PA-C IMG RFL MAMMO Edited Result - Final * HEPATITIS A,B,C PANEL (09/19/2017 2:40 PM EDT) HEPATITIS B SURFACE ANTIBODY NEGATIVE NEGATIVE [facility] HEPATITIS B SURFACE ANTIGEN NEGATIVE NEGATIVE [facility] Comment: Over the counter supplements containing high doses of biotin may interfere with this assay. ??If interference is suspected, patients shoud be retested after refraining from biotin supplements for 72 hours. HEPATITIS C VIRUS DIAGNOSTIC NEGATIVE NEGATIVE [facility] HEPATITIS B CORE ANTIBODY NEGATIVE NEGATIVE [facility] HEPATITIS A ANTIBODY TOTAL NEGATIVE NEGATIVE [facility] Comment: Over the counter supplements containing high doses of biotin may interfere with this assay. ??If interference is suspected, patients shoud be retested after refraining from biotin supplements for 72 hours. Blood specimen (specimen) Blood / Unknown 09/19/2017 2:40 PM EDT 09/19/2017 2:50 PM EDT Narrative [facility] - 09/19/2017 7:28 PM EDT [employer] [address] [place] [address] PT ID [id number] ORD# [id number] Doc [facility] LAB - BLOOD DRAW Edited Result - Final [facility] [address] [place] [address], * (ABNORMAL) COLONOSCOPY (04/26/2016) Provider [place] PROCEDURES Final Result from Last 3 Months or Most Recently Relevant to Health Maintenance [place] Advance Directives Healthcare Agents on File Name Relationship Healthcare Agent Relationship Communication Karla Corado [employer] Health Care Agent [phone] (Work) Care Teams [employer] Relationship Specialty Start Date End Date Jadyn Nina NP [address] [place] [address] PCP - General Internal Medicine 11/17/21
--- NOTE | 2024-08-11 19:02 | PC.NURSE ---
patient and family membert approached t/w stated they needed to leave dept- dc paperwork provided
[2024-08-11 19:03] VITALS: BP 139/86; PULSE 93; RESP 16; TEMP 36.7; O2SAT 98
== END 2024-08-11 19:03 | disposition home or self-care (01) ==
PROVIDERS: Emergency Provider Emergency Medicine
DX: M19.072 Primary osteoarthritis, left ankle and foot (principal); M77.8 Other enthesopathies, not elsewhere classified; M25.572 Pain in left ankle and joints of left foot
CPT/HCPCS: 73610; 99282; 99283

== ENCOUNTER → 2024-08-11 18:00 | Outpatient (BNV) | payer MEDICARE, MEDICAID, SELFPAY | PROVIDERS: Emergency Provider Emergency Medicine; Visit Provider Radiology Diagnostic Radiology | DX: M25.572 Pain in left ankle and joints of left foot (principal) | CPT/HCPCS: 73610 ==